=== PATIENT | female | born 1965 ===

== ENCOUNTER 2018-04-09 22:08 | Emergency (ER) | payer BC, OTHER ==
[2018-04-09 22:28] VITALS: BMI 35.2
[2018-04-09 22:41] VITALS: RESP 18; TEMP 97.8; O2SAT 100
[2018-04-09] MEDS ORDERED: DiphenhydrAMINE 12.5 mg/5 ml LIQ UD (5 ml) PO STA (22:43)
--- NOTE | 2018-04-09 22:49 | ED PDOC ---
Arrival/HPI - General Chief Complaint: Abnormal Skin Integrity Historian: Patient - History of Present Illness Narrative History of Present Illness (Text): 04/09/18 22:44 52 year old female, who denies any past medical history, presents to the emergency department with pruritic rash, since 11:00 today. Patient states she took Benadryl around 15:00 and again at 19:00 with some relief. Patient also informs using Hydrocortisone cream with some relief, but itchiness keeps returning. Patient states she is only allergic to fish. Patent informs eating a seafood salad yesterday with shrimp. Patient denies any tongue swelling, chest pain, shortness of breath, fevers, chills, headache, dizziness, or any other complaint. Time/Duration: 24 hours Symptom Onset: Gradual Symptom Course: Unchanged Past Medical History - Provider Review Nursing Documentation Reviewed: Yes - Infectious Disease Hx of Infectious Diseases: None - Cardiac Other/Comment: pt states during she had htn only - Pulmonary Hx Asthma: Yes - Endocrine/Metabolic Hx Diabetes Mellitus Type 2: Yes (during ) - Genitourinary/Gynecological Other/Comment: Kidney stone - Psychiatric Hx Substance Use: No - Surgical History Hx Appendectomy: Yes () Hx Cholecystectomy: Yes (1994) - Anesthesia Hx Anesthesia: Yes Hx Anesthesia Reactions: No Hx Malignant Hyperthermia: No - Suicidal Assessment Feels Threatened In Home Enviroment: No Family/Social History - Physician Review Nursing Documentation Reviewed: Yes Family/Social History: No Known Family HX Smoking Status: Never Smoked Hx Alcohol Use: No Hx Substance Use: No Allergies/Home Meds Allergies/Adverse Reactions: Allergies No Known Allergies Allergy (Verified 10/28/16 15:31) Review of Systems - Physician Review All systems were reviewed & negative as marked: Yes - Review of Systems Constitutional: absent: Fevers, Night Sweats Respiratory: absent: SOB Cardiovascular: absent: Chest Pain Skin: Rash, Pruritis Neurological: absent: Headache, Dizziness Physical Exam Vital Signs Reviewed: Yes Vital Signs Temp Pulse Resp BP Pulse Ox 04/09/18 22:37 97.8 F 68 18 130/74 100 Temperature: Afebrile Blood Pressure: Normal Pulse: Regular Respiratory Rate: Normal Appearance: Positive for: Well-Appearing, Non-Toxic, Comfortable Pain Distress: None Mental Status: Positive for: Alert and Oriented X 3 - Systems Exam Head: Present: Atraumatic, Normocephalic Pupils: Present: PERRL Extroacular Muscles: Present: EOMI Conjunctiva: Present: Normal Mouth: Present: Moist Mucous Membranes Neck: Present: Normal Range of Motion Respiratory/Chest: Present: Clear to Auscultation, Good Air Exchange. No: Respiratory Distress, Accessory Muscle Use Cardiovascular: Present: Regular Rate and Rhythm, Normal S1, S2. No: Murmurs Abdomen: No: Tenderness, Distention, Peritoneal Signs Back: Present: Normal Inspection Upper Extremity: Present: Normal Inspection. No: Cyanosis, Edema Lower Extremity: Present: Normal Inspection. No: Edema Neurological: Present: GCS=15, CN II-XII Intact, Speech Normal Skin: Present: Warm, Dry, Rashes (Hives across trunk and upper extremities) Psychiatric: Present: Alert, Oriented x 3, Normal Insight, Normal Concentration Medical Decision Making ED Course and Treatment: 04/09/18 22:52 Impression: 52 year old female presents with pruritic rash. Plan: -- Benadryl -- Pepcid -- Prednisone -- Reassess and disposition Prior Visits: Notes and results from previous visits were reviewed. Progress Notes: 04/10/18 00:09 PT was not in any distress in ED. She had no stridor. No drooling. No tongue swelling. Her rash improved in ED with medication She was DC home with pepcid and prednisone. Advised to continue with her Benadryl. Referred to a [facility]. - Medication Orders Current Medication Orders: Diphenhydramine HCl (Benadryl) 25 mg PO STAT STA Stop: 04/09/18 22:44 Famotidine (Pepcid) 20 mg PO STAT STA Stop: 04/09/18 22:44 Prednisone (Prednisone Tab) 40 mg PO STAT STA Stop: 04/09/18 22:44 - Scribe Statement The provider has reviewed the documentation as recorded by the Crescencio Castro Provider Scribe Attestation: All medical record entries made by the Scribjoaquin were at my direction and personally dictated by me. I have reviewed the chart and agree that the record accurately reflects my personal performance of the history, physical exam, medical decision making, and the department course for this patient. I have also personally directed, reviewed, and agree with the discharge instructions and disposition. Disposition/Present on Arrival - Present on Arrival Any Indicators Present on Arrival: No History of DVT/PE: No History of Uncontrolled Diabetes: No Urinary Catheter: No History of Decub. Ulcer: No History Surgical Site Infection Following: None - Disposition Have Diagnosis and Disposition been Completed?: Yes Diagnosis: Allergic reaction Disposition: HOME/ ROUTINE Disposition Time: 23:10 Patient Plan: Discharge Condition: STABLE Discharge Instructions (ExitCare): Hives Additional Instructions: Follow up with your doctor/[facility] Return to ED for any new or worsening symptoms Prescriptions: Famotidine [Pepcid] 20 mg PO DAILY #10 tab predniSONE [Prednisone] 20 mg PO BID #6 tab Referrals: Raymond Archer MD [Staff Provider] - Follow up with primary Forms: [facility] (Australian)
[2018-04-09 23:48] VITALS: BP 130/76; PULSE 62
== END 2018-04-09 23:40 | disposition home or self-care (01) ==
LOC: ED 22:08
DX: T78.49XA Other allergy, initial encounter (principal); X58.XXXA Exposure to other specified factors, initial encounter

== ENCOUNTER 2018-08-02 17:17 | Emergency (ER) | payer BC, OTHER ==
[2018-08-02 17:30] VITALS: BMI 30.2
[2018-08-02] MEDS ORDERED: Sodium Chloride 0.9% 1,000 ML IV STA (17:33)
[2018-08-02 17:34] VITALS: RESP 18; TEMP 97.5; O2SAT 100
--- NOTE | 2018-08-02 17:51 | ED PDOC ---
Arrival/HPI - General Chief Complaint: Back Pain Time Seen by Provider: 08/02/18 17:19 Historian: Patient - History of Present Illness Narrative History of Present Illness (Text): 08/02/18 17:39 53 y/o female with PMH of kidney stones presents to the ED c/o right flank pain x 1 week that worsened today. States this feels like prior kidney stones. Pt reports that her last kidney stone was in 2017 that was 8mm with associated hy dronephrosis and she had a successful lithotripsy done by urologist Dr. Ibrahim. Has not taken any medication for pain. Denies fever, chills, nausea, vomiting, diarrhea, abdominal pain, dysuria, hematuria, urinary frequency, numbness, weakness, paresthesias, SOB, chest pain, or any other associated symptoms. Past Medical History - Provider Review Nursing Documentation Reviewed: Yes - Infectious Disease Hx of Infectious Diseases: None - Reproductive Menopause: Yes - Cardiac Other/Comment: pt states during she had htn only - Pulmonary Hx Asthma: Yes - Endocrine/Metabolic Hx Diabetes Mellitus Type 2: Yes (during ) - Genitourinary/Gynecological Other/Comment: Kidney stone - Psychiatric Hx Substance Use: No - Surgical History Hx Appendectomy: Yes () Hx Section: Yes (2) Hx Cholecystectomy: Yes (1994) - Anesthesia Hx Anesthesia: Yes Hx Anesthesia Reactions: No Hx Malignant Hyperthermia: No - Suicidal Assessment Feels Threatened In Home Enviroment: No Family/Social History - Physician Review Nursing Documentation Reviewed: Yes Family/Social History: No Known Family HX Smoking Status: Never Smoked Hx Alcohol Use: No Hx Substance Use: No Allergies/Home Meds Allergies/Adverse Reactions: Allergies No Known Allergies Allergy (Verified 08/02/18 17:30) Review of Systems - Review of Systems Constitutional: Normal. absent: Fatigue, Fevers Eyes: Normal. absent: Vision Changes ENT: Normal. absent: Sore Throat, Sinus Congestion Respiratory: Normal. absent: SOB, Cough Cardiovascular: Normal. absent: Chest Pain, Palpitations, Syncope Gastrointestinal: Other (right flank pain). absent: Abdominal Pain, Stool Changes, Constipation, Diarrhea, Nausea, Vomiting, Appetite Changes, Hematochezia, Hematemesis Genitourinary Female: Normal. absent: Dysuria, Frequency, Hematuria, Vaginal Bleeding, Vaginal Discharge Musculoskeletal: Normal. absent: Arthralgias, Neck Pain Skin: Normal. absent: Rash Neurological: Normal. absent: Headache, Dizziness, Focal Weakness Endocrine: Normal Hemo/Lymphatic: Normal Psychiatric: Normal Physical Exam Vital Signs Reviewed: Yes Vital Signs Temp Pulse Resp BP Pulse Ox 08/02/18 17:18 97.5 F L 95 H 18 140/87 100 Temperature: Afebrile Blood Pressure: Normal Pulse: Regular Respiratory Rate: Normal Appearance: Positive for: Non-Toxic, Uncomfortable Pain Distress: Moderate Mental Status: Positive for: Alert and Oriented X 3 - Systems Exam Head: Present: Atraumatic, Normocephalic Pupils: Present: PERRL Extroacular Muscles: Present: EOMI Conjunctiva: Present: Normal Mouth: Present: Moist Mucous Membranes Neck: Present: Normal Range of Motion. No: Meningeal Signs Respiratory/Chest: Present: Clear to Auscultation, Good Air Exchange. No: Resp iratory Distress, Accessory Muscle Use Cardiovascular: Present: Regular Rate and Rhythm, Normal S1, S2, Peripheal Pulses Present Abdomen: Present: Normal Bowel Sounds. No: Tenderness, Distention, Peritoneal Signs, Rebound, Guarding Back: Present: Normal Inspection, CVA Tenderness (right sided) Upper Extremity: Present: Normal Inspection, Normal ROM, NORMAL PULSES, Neurovascularly Intact, Capillary Refill < 2s. No: Cyanosis, Edema, Temperature Abnormalties Lower Extremity: Present: Normal Inspection, NORMAL PULSES, Normal ROM, Neurovascularly Intact, Capillary Refill < 2 s. No: Edema, Temperature Abnormalties Neurological: Present: GCS=15, CN II-XII Intact, Speech Normal, Motor Func Grossly Intact, Normal Sensory Function, Gait Normal Skin: Present: Warm, Dry, Normal Color. No: Rashes Lymphatic: No: Cervical Adenopathy Psychiatric: Present: Alert, Oriented x 3, Normal Insight, Normal Concentration, Normal Affect, Normal Mood Medical Decision Making ED Course and Treatment: 08/02/18 17:53 Initial Plan: * CBC, CMP * Lipase * Coags * UA, culture * CT Abd/Pelvis without contrast * IVF * Toradol * Zofran 20:00 Pt reports significant improvement in pain with medication Bloodwork reviewed, significant for glucose of 193 without anion gap or abnormal CO2, otherwise unremarkable Urine shows moderate blood, trace leuk esterase Pending CT Abd/Pelvis 22:45 CT significant for right sided obstructing 5.4mm stone in proximal ureter with associated hydronephrosis. Creatinine 0.8. Will consult urology news operations manager. Unable to get in contact with patients previous urologist Dr. Ibrahim. 23:00 Case discussed with urology news operations manager, Dr. Susanne Skinner who recommends abdominal XR with bilateral oblique views, and discharge home with prescriptions for pain medication and followup with him tomorrow in the office. Face sheet and CT report faxed to his office. Will give antibiotic and flomax in addition to pain medication. Pt verbalized understanding of followup instructions. Pain continues to be controlled here in ED. Pt comfortable with discharge home. Diagnostic testing results and plan of care discussed with patient. Strict instructions given regarding prescription use, importance of followup, and sig ns/symptoms to return to ER including worsening pain, vomiting, fever, or any other new/worsening symptoms. Pt verbalized understanding of discussion. Patient is A&Ox3, ambulating with steady gait, with vital signs stable for discharge. - Lab Interpretations Lab Results: 08/02/18 17:50 08/02/18 17:50 Lab Results 08/02/18 20:20: Urine Color Yellow, Urine Appearance Slight-cloudy, Urine pH 6.5, Ur Specific [place] 1.015, Urine Protein Negative, Urine Glucose (UA) Negative, Urine Ketones Negative, Urine Blood Moderate H, Urine Nitrate N egative, Urine Bilirubin Negative, Urine Urobilinogen 0.2, Ur Leukocyte Esterase Small H, Urine RBC 2 - 5 H, Urine WBC 2 - 5, Ur Epithelial Cells 1 - 3 08/02/18 17:50: Lipase 110 08/02/18 17:50: PT 12.0, INR 1.08, APTT 32.0 08/02/18 17:50: Sodium 139, Potassium 4.0, Chloride 103, Carbon Dioxide 25, Anion Gap 15, BUN 21, Creatinine 0.8, Est GFR ( Amer) > 60, Est GFR (Non- Af Amer) > 60, Random Glucose 193 H, Calcium 9.7, Total Bilirubin 0.4, AST 39 H, ALT 50, Alkaline Phosphatase 127 H, Total Protein 8.0, Albumin 4.1, Globulin 3.9, Albumin/Globulin Ratio 1.0 L 08/02/18 17:50: WBC 7.8, RBC 4.47, Hgb 13.7, Hct 40.0, MCV 89.5, MCH 30.6, MCHC 34.3, RDW 13.5, Plt Count 275, MPV 10.3, Neut % (Auto) 53.1, Lymph % (Auto) 37.7 H, [place] % (Auto) 6.9 H, Eos % (Auto) 1.9, Baso % (Auto) 0.4, Lymph # (Auto) 2.9, [place] # (Auto) 0.5, Eos # (Auto) 0.2, Baso # (Auto) 0.03, Absolute Neuts (auto) 4.13 I have reviewed the lab results: Yes - RAD Interpretation Radiology Orders: 08/02/18 17:32 ABD & PELVIS W/O PO OR IV CONT [CT] Stat - Medication Orders Current Medication Orders: Sodium Chloride (Sodium Chloride 0.9%) 1,000 mls @ 999 mls/hr IV .Q1H1M STA Stop: 08/02/18 18:33 Discontinued Medications Ketorolac Tromethamine (Toradol) 30 mg IVP STAT STA Stop: 08/02/18 17:33 Ondansetron HCl (Zofran Inj) 4 mg IVP STAT STA Stop: 08/02/18 17:33 Disposition/Present on Arrival - Present on Arrival Any Indicators Present on Arrival: No History of DVT/PE: No History of Uncontrolled Diabetes: No Urinary Catheter: No History of Decub. Ulcer: No History Surgical Site Infection Following: None - Disposition Have Diagnosis and Disposition been Completed?: Yes Diagnosis: Nephrolithiasis, Hydronephrosis Disposition: HOME/ ROUTINE Disposition Time: 23:00 Patient Plan: Discharge Condition: IMPROVED Discharge Instructions (ExitCare): Kidney Stones in Adults, Hydronephrosis in Adults Additional Instructions: Flomax daily for 1 week Bactrim every12 hours for 1 week Ibuprofen every 8 hours with food as needed Percocet every 6 hours as needed for severe pain Increase fluids Followup with Dr. Susanne Skinner tomorrow Return to ER with any new/worsening symptoms Prescriptions: Ibuprofen [Motrin Tab] 600 mg PO Q8 PRN #30 tab PRN Reason: Pain, Moderate (4-7) oxyCODONE/Acetaminophen [Percocet 5/325 mg Tab] 1 ea PO Q6 PRN #10 tab PRN Reason: Pain, Severe (8-10) Sulfamethoxazole/Trimethoprim [Bactrim DS 800 mg-160 mg] 1 tab PO Q12H #14 tab Tamsulosin [Flomax] 0.4 mg PO DAILY #7 cap Referrals: Susanne Skinner MD [Staff Provider] - Follow up with primary Forms: [facility] (Ukrainian), WORK NOTE
[2018-08-02 18:05] LABS: BASO # 0.03 K/mm3 (0.0-2.0); BASO % 0.4 % (0.0-3.0); EOS # 0.2 (0.0-0.7); EOS % 1.9 % (1.5-5.0); HEMOGLOBIN 13.7 g/dL (12.0-16.0); LYMPH # 2.9 (1.2-3.4); LYMPH % 37.7 % (22.0-35.0); MEAN CELL VOLUME 89.5 fl (80.0-105.0); MEAN CORPUSCULAR HEMOGLOBIN 30.6 pg (25.0-35.0); MEAN CORPUSCULAR HGB CONC 34.3 g/dl (31.0-37.0); MEAN PLATELET VOLUME 10.3 fl (7.0-11.0); MONO # 0.5 (0.1-0.6); MONO % 6.9 % (1.0-6.0); RBC 4.47 10^6/uL (3.5-6.1); RED CELL DISTRIBUTION WIDTH 13.5 % (11.5-14.5); WHITE BLOOD COUNT 7.8 10^3/uL (4.5-11.0)
[2018-08-02 18:10] LABS: ALBUMIN 4.1 g/dL (3.0-4.8); ALT/SGPT 50 U/L (7-56); AST/SGOT 39 U/L (14-36); BLOOD UREA NITROGEN 21 mg/dL (7-21); CALCIUM 9.7 mg/dL (8.4-10.5); GFR NON-AFRICAN AMERICAN > 60
[2018-08-02 18:11] LABS: INR 1.08
[2018-08-02 20:09] LABS: PH,URINE 6.5 (4.7-8.0); URINE BILIRUBIN NEGATIVE (NEGATIVE); URINE BLOOD MODERATE (NEGATIVE); URINE GLUCOSE (UA) NEGATIVE (NEGATIVE); URINE LEUKOCYTE ESTERASE SMALL Leu/uL (NEGATIVE); URINE PROTEIN NEGATIVE mg/dL (<30 mg/dL); URINE UROBILINOGEN 0.2 E.U./dL (<1 E.U./dL)
[2018-08-02 20:38] LABS: URINE APPEARANCE SLIGHT-CLOUDY (CLEAR); URINE COLOR YELLOW (YELLOW)
[2018-08-02] MEDS ORDERED: Tmp-Smz 800 mg-160 mg DS Tab PO STA (22:49)
[2018-08-03 00:35] VITALS: BP 137/84; PULSE 80
--- NOTE | 2018-08-03 08:53 | CT ---
Date of service: 08/02/2018 PROCEDURE: CT Abdomen and Pelvis without intravenous contrast HISTORY: stone search, right sided pain COMPARISON: None available TECHNIQUE: Without contrast.. Contrast dose: 0 Radiation dose: Total exam DLP = 1051.18 mGy-cm. This CT exam was performed using one or more of the following dose reduction techniques: Automated exposure control, adjustment of the mA and/or kV according to patient size, and/or use of iterative reconstruction technique. FINDINGS: LOWER THORAX: Unremarkable. LIVER: Diffuse diminished attenuation consistent with fatty infiltration. No mass. No biliary ductal dilatation. Smooth contour. GALLBLADDER AND BILE DUCTS: Cholecystectomy PANCREAS: Unremarkable. No gross lesion or ductal dilatation. SPLEEN: Unremarkable. ADRENALS: Unremarkable. No mass. KIDNEYS AND URETERS: Multiple punctate nonobstructing bilateral renal calculi, 2-3 mm. There is an obstructing 7 mm proximal right ureteral calculus. There is mild right hydronephrosis. There is no left hydronephrosis. There is no perinephric fluid. There is no renal mass. VASCULATURE: Unremarkable. No aortic aneurysm. There is atherosclerotic calcification of the abdominal aorta. BOWEL: Unremarkable. No obstruction. No gross mural thickening. APPENDIX: Status post appendectomy PERITONEUM: Unremarkable. No free fluid. No free air. LYMPH NODES: Unremarkable. No enlarged lymph nodes. BLADDER: Unremarkable. REPRODUCTIVE: Unremarkable uterus. Incidental 1.7 cm right ovarian cyst. BONES: No acute fracture. OTHER FINDINGS: None. IMPRESSION: Obstructing 7 mm proximal right ureteral calculus with mild right hydronephrosis. Multiple tiny bilateral nonobstructing renal calculi. Incidental 1.7 cm right ovarian cyst. Fatty infiltration of the liver. Status post cholecystectomy and appendectomy. The preliminary findings for this examination were reported by [facility] at 9:25 p.m. on 08/02/2018. There is concurrence of this report with the preliminary findings.
--- NOTE | 2018-08-03 12:32 | RAD ---
Date of service: 08/02/2018 HISTORY: stone search COMPARISON: 08/02/2018 CT TECHNIQUE: Five views view obtained. FINDINGS: BOWEL: Normal. No obstruction. No free air. BONES: Normal. OTHER FINDINGS: There is an 8 mm stone in the right ureter located between the transverse process of L3 and L4 IMPRESSION: As above
== END 2018-08-03 | disposition home or self-care (01) ==
LOC: ED 17:17
DX: N13.2 Hydronephrosis with renal and ureteral calculous obstruction (principal)
CPT/HCPCS: 74022; 74176; 80053; 81001; 81025; 83690; 85025; 85610; 85730; 87086; 96361; 96374; 96375; 99283; J1885; J2405; J7030